=== PATIENT | male | born 1990 ===

== ENCOUNTER 2023-09-22 10:35 | Outpatient (CLI) | payer OTHER, SELFPAY ==
--- NOTE | 2023-09-22 10:15 | DI.RAD_ITS ---
Exam(s) XR KNEE RT 3V AP,LAT,JULIENNE EXAM: XR KNEE RT 3V AP,LAT,JULIENNE CLINICAL HISTORY: pain/injury. TECHNIQUE: 2D digital imaging was performed of the right knee. Three views obtained. Merchant, AP an d lateral views were obtained. COMPARISON: MR MR KNEE RIGHT WO CONTRAST from 03/18/2023 FINDINGS: BONES: No acute fracture is present. No bony destructive lesion is seen. There are postsurgical josé es of an anterior cruciate ligament repair JOINTS: There is mild narrowing of the medial femoral tibial joint. There osteophytes seen at the po sterior patella and the medial lateral femoral tibial joints. No joint effusion is seen. SOFT TISSUE: Normal. IMPRESSION: Moderate degenerative changes of the right knee. DATA REPOSITORY: RADIATION DOSE DELIVERED:
== END 2023-09-22 10:36 | disposition home or self-care (01) ==
LOC: DIORS 10:36
PROVIDERS: Visit Provider Physician Assistant
DX: T84.89XA Other specified complication of internal orthopedic prosthetic devices, implants and grafts, initial encounter (principal); X58.XXXA Exposure to other specified factors, initial encounter
CPT/HCPCS: 73562